=== PATIENT | female | born 1985 | race Caucasian/White ===

== ENCOUNTER 2019-01-19 13:32 | Emergency (ER) | payer MEDICAID ==
[~2019-01-19] VITALS: Ht 162.6 cm; Wt 63.6 kg
[2019-01-19 13:34] VITALS: BP 122/83
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
== END 2019-01-19 15:53 | disposition left against medical advice (07) ==
LOC: EEVIPCON 13:33 → ER 13:33
DX: T76.21XA Adult sexual abuse, suspected, initial encounter (principal); F29 Unspecified psychosis not due to a substance or known physiological condition; F60.0 Paranoid personality disorder; F20.9 Schizophrenia, unspecified; F31.9 Bipolar disorder, unspecified; F15.90 Other stimulant use, unspecified, uncomplicated; F10.99 Alcohol use, unspecified with unspecified alcohol-induced disorder; Y92.89 Other specified places as the place of occurrence of the external cause; Y93.89 Activity, other specified; Y99.8 Other external cause status; Y90.9 Presence of alcohol in blood, level not specified
CPT/HCPCS: 99284